=== PATIENT | male | born 1990 | race Caucasian/White ===

== ENCOUNTER 2022-05-24 20:09 | Inpatient (IN) ==
[2022-05-24] MEDS ORDERED: SODIUM CHLORIDE 0.9% 1000ML 1,000 ML IV STA (20:38)
[2022-05-24] MEDS ORDERED: ACETAMINOPHEN 500 MG TAB PO STA (20:47)
--- NOTE | 2022-05-24 20:50 | Emergency Department Note ---
Impression & Plan Altered mental status, COVID-19 ED Provider Note Provider: Fracisco Ballesteros MD DATE OF SERVICE: 05/24/2022 CHIEF COMPLAINT: "coma, illness" HISTORY OF PRESENT ILLNESS: Patient is a 32-year-old gentleman presenting today brought by police from the hotel stating that he feels like his brain is going into a coma and requesting ICU care. Patient reports that he has been ill for the last day or 2 prickly sick today. States that he has not fallen. Denies nausea or abdominal pain. Denies chest pain. Denies neck pain to me. Continuously focuses on stating he feels like he is in a coma he needs the ICU. Evidently he was recently discharged from [facility] for rehab several days ago. He is from [place] by his report. When asked what he was at [facility] for he said for rehab but then states he does not want tells anything out that he has been clean and that we have taken his urine. Patient states he did go to [employer] to get some [id number] cough and cold medicine he took around noon to 1 PM today but it did not help. Denies drug or alcohol use again to me. Patient states he feels warm and cold PAST MEDICAL HISTORY: As noted above MEDICATIONS: Patient states he is not on any medicines SOCIAL HISTORY: Denies drug or alcohol use, from [place] PHYSICAL EXAM: GENERAL: alert laying on the stretcher oriented. Head: normocephalic and atraumatic EYES: No injection, discharge or icterus. NECK: Trachea midline. Supple without significant meningismus ENT: Mucous membranes pink and moist LUNGS: Airway patent. No retractions. Breath sounds clear with good air entry bilaterally. HEART: Regular tachycardic rate and rhythm. No chest wall tenderness ABDOMEN: Soft and non-tender, without guarding or rebound. No significant flank tenderness. SKIN: Acyanotic, warm, dry, without rashes EXTREMITIES: Without swelling, tenderness or deformity NEUROLOGICAL: No focal deficits. No aphasia. No facial droop or slurred speech. Normal strength and tone in the extremities. Sensation to gross touch normal. Ambulatory. EK bpm sinus tachycardia. No PVC or PAC. No acute ST segment elevation or depression with QTc of 4 4 CONTINUOUS CARDIAC MONITORING: was ordered and showed a heart rate of 110s-120s bpm in sinus tachycardia 1 view chest x-ray per my interpretation: No pneumothorax. Question some right hilar Consolidation. No free air under the diaphragm noted. Patient's laboratory studies and imaging reviewed. Differential includes Infection, psychotic disorder, drug-induced confusion, dehydration, metabolic abnormality, hypo/hyperglycemia, electrolyte disturbance, anemia, hypoxia, cardiac sources, intracerebral event, toxicologic, neurologic, as well as other pathologies. IMPRESSION/MEDICAL DECISION MAKING: Patient brought in stating that he feels like he is going into a coma and feeling cold and that he needs the ICU. He denies any significant medical history to me. Evidently was recently out of [facility] rehab [place] but will get the additional information about 1 when on there are what he was detoxing from. States he does not use drugs. Denies any trauma. States he did use some [id number] cough and cold medicine hours ago around noon to 1 PM which did not help. Denies abdominal pain or chest pain. States his brain feels like is going in a coma but does not state he is having a headache. States he is feeling cold. Denies significant sore throat. There is some report from nursing here that he was possibly having some hallucinations prior to arrival which caused the police to go and check on him at the hotel he staying at in [facility]. When asked the patient continues to perseverate that he came here voluntarily for medical issues he does not have mental health issues. Difficult to get a clear history from him as he continually states he feels like he is in a coma and needs the ICU. Interactive and does not appear lethargic. Moving all extremities. No evidence of trauma on physical exam. Patient states he is going and out of consciousness but talking to me. Unclear if this is more medical or psychiatric in nature. Febrile here and tachycardic. Given this given some Tylenol as he states its been sometime since he had any as well as IV fluids and blood cultures and blood work for ordered. Given the reported some hallucinations, will obtain head CT. Do not see clear evidence of trauma on his person. Drug screen was sent to given the recent hospitalization. Does not seem to be having focal neurological deficits. Has a benign abdomen. Did later talk with the patient's mother via phone. She reported the patient was therefore rehab from she believes fentanyl that he was smoking. Stated available talking with him this morning but then this afternoon was not acting r ight having delusions stating people were outside in a car and they were hurting girls. She denies a history of similar. She states he states he thinks he may have taken something. She denies that he has any other significant medical history. As far she knows he has not injected drugs. She states that he possibly said that his heart hurt. Chest x-ray questionable with some right hilar consolidation but no pneumothorax noted. Blood work without significant anemia or leukocytosis. No significant lecture light abnormalities signs of renal dysfunction. No lactate elevation. No signs of transaminitis or troponin elevation. Negative urinalysis. Negative acetaminophen and salicylate levels. Undetectable alcohol level. CT of the head report as below without significant abnormality. Positive for COVID likely explains much of his symptoms. Given this along with his fever and complaints discussed with him further medical observation and care here. Updated patient's mother via phone with limited information given the patient's wishes informing her that he was here and stable. CT of the chest without significant pulmonary findings likely. Patient asking for food and drink. Question if there may be some substance not detected UDS contributing to his presentation versus just some encephalopathy from his COVID. Given the laboratory studies lack of significant meningeal signs lower suspicion for meningitis and do not feel he needs an LP at this point. DIAGNOSIS: Confusion, COVID-19 sepsis DISPOSITION: Hospitalist will evaluate Preliminary Findings Only See Final Report For Complete Findings CT HEAD: No acute intracranial hemorrhage. No midline shift or mass effect. The territorial champagne-white matter differentiation is maintained throughout. The ventricles and sulci are commensurate with age. Radiologist: Jesús Piedra MD Study ready at 21:57 and initial results transmitted at 22:22 Preliminary Findings Only See Final Report For Complete Findings CTA CHEST: Negative for PE No acute airspace disease or effusions Centrilobular emphysema noted Bronchial wall thickening likely reflect COPD Moderately prominent dependent atelectasis noted bilaterally Heart size normal Negative for CHF Radiologist: Yogesh Johnson MD Study ready at 22:47 and initial results transmitted at 23:33 Past Med/Surg History Social History Smoking Status: Never smoker Feels Safe at Home: Yes Results & Data (ED) Vital Signs Vital Signs - 24 hr 05/24/22 20:09 05/24/22 20:55 05/24/22 21:00 Temperature 39.5 C H Temperature Source Oral Pulse Rate 123 H 124 H Pulse Rate from SpO2 Sensor Respiratory Rate 20 Respiratory Effort / Characteristics Non-Labored Respiratory Depth Normal Blood Pressure 113/62 112/62 Blood Pressure Mean 79 78 Pulse Oximetry 99 Sepsis Recent Fever Within 48 Hours Yes Sepsis New/Unexplained Change in Mental Status Yes Sepsis Action Taken by Nursing Physician Notified 05/24/22 21:01 05/24/22 21:30 05/24/22 21:30 Temperature Temperature Source Pulse Rate 127 H 122 H Pulse Rate from SpO2 Sensor 128 H 121 H Respiratory Rate 18 20 Respiratory Effort / Characteristics Respiratory Depth Blood Pressure 117/62 Blood Pressure Mean 80 Pulse Oximetry 95 94 Sepsis Recent Fever Within 48 Hours Sepsis New/Unexplained Change in Mental Status Sepsis Action Taken by Nursing 05/24/22 21:57 05/24/22 21:57 05/24/22 22:00 Temperature Temperature Source Pulse Rate 117 H Pulse Rate from SpO2 Sensor 118 H Respiratory Rate 9 L Respiratory Effort / Characteristics Respiratory Depth Blood Pressure 96/52 L 94/54 L Blood Pressure Mean 66 67 Pulse Oximetry 95 Sepsis Recent Fever Within 48 Hours Sepsis New/Unexplained Change in Mental Status Sepsis Action Taken by Nursing 05/24/22 22:00 Temperature Temperature Source Pulse Rate 117 H Pulse Rate from SpO2 Sensor 116 H Respiratory Rate 15 Respiratory Effort / Characteristics Respiratory Depth Blood Pressure Blood Pressure Mean Pulse Oximetry 94 Sepsis Recent Fever Within 48 Hours Sepsis New/Unexplained Change in Mental Status Sepsis Action Taken by Nursing Laboratory Data 05/24/22 20:30 05/24/22 20:30 Lab Results 05/24/22 05/24/22 05/24/22 Range/Units 20:30 20:30 20:30 WBC 7.51 (4.8-10.8) K/ul RBC 4.97 (4.70-6.10) M/uL Hgb 14.4 (14.0-18.0) g/dl Hct 41.4 L (42.0-52.0) % MCV 83.3 (80.0-100.0) fL MCH 29.0 (25.0-34.0) pg MCHC 34.8 (32.0-36.0) g/dL RDW Std Deviation 44.5 (36.4-46.3) fL RDW Coeff of [place]ail[place] 14.7 H (11.5-14.5) % Plt Count 208 (130-400) K/uL MPV 10.3 (9.4-12.4) fL Immature Gran % (Auto) 0.3 % Neut % (Auto) 77.7 % Lymph % (Auto) 7.6 % [place] % (Auto) 12.5 % Eos % (Auto) 1.2 % Baso % (Auto) 0.7 % Neut # (Auto) 5.84 (1.40-6.50) K/uL Lymph # (Auto) 0.57 L (1.2-3.4) K/uL [place] # (Auto) 0.94 H (0.11-0.59) K/uL Eos # (Auto) 0.09 (0-0.50) K/uL Baso # (Auto) 0.05 (0-0.2) K/uL Immature Gran # (Auto) 0.02 (0.01-0.20) K/uL Sodium 139 (136-145) mmol/L Potassium 3.7 (3.5-5.1) mmol/L Chloride 106 (98-107) mmol/L Carbon Dioxide 25 (21-32) mmol/L Anion Gap 8 (3-11) BUN 14 (6-23) mg/dl Creatinine 0.90 (0.6-1.4) mg/dl Est Cr Clr Drug Dosing 118.4 ml/min Est GFR ( Amer) 128.7 ml/min Est GFR (Non-Af Amer) 111.0 ml/min BUN/Creatinine Ratio 15.6 (10-20) Glucose 101 H (70-99(Fasting)) mg/dl Lactate (0.4-2.0) mmol/L Calcium 9.7 (8.5-10.1) mg/dl Total Bilirubin 0.3 (0.2-1.0) mg/dl AST 25 (13-39) U/L ALT 22 (7-52) U/L Alkaline Phosphatase 72 (34-104) U/L Troponin I High Sens 4.8 (0-20) pg/ml Total Protein 6.8 (6.0-8.3) gm/dl Albumin 4.6 (3.4-5.0) gm/dl Globulin 2.2 L (2.5-4.0) gm/dl Albumin/Globulin Ratio 2.1 H (0.9-2) Urine Color Urine Appearance (Clear) Urine pH (4.5-7.5) Ur Specific [place] (1.000-1.030) Urine Protein (Negative) Urine Glucose (UA) (Negative) Urine Ketones (Negative) Urine Blood (Negative) Urine Nitrite (Negative) Urine Bilirubin (Negative) Urine Urobilinogen (Negative) Ur Leukocyte Esterase (Negative) Salicylates < 3.0 L (3.0-30) mg/dl Urine Opiates Screen (Neg) Ur Methadone, Qual (Neg) Acetaminophen < 3 L (10-30) ug/ml Urine Barbiturates (Neg) Ur Phencyclidine (PCP) (Neg) U Amphetamin/Meth Scrn (Neg) MDMA (Ecstasy) Screen (Neg) U Benzodiazepines Scrn (Neg) Ur Cocaine Metabolite (Neg) U Marijuana (THC) Screen (Neg) Ethyl Alcohol mg/dL (<10.0) mg/dl Adenovirus (PCR) (NotDetected) B. pertussis DNA (PCR) (NotDetected) B.parapertussis DNA PCR (NotDetected) C. pneumoniae DNA (PCR) (NotDetected) Coronavirus OC43 (PCR) (NotDetected) Coronavirus HKU1 (PCR) (NotDetected) Coronavirus 229E (PCR) (NotDetected) SARS-CoV-2 (PCR) (NotDetected) Coronavirus NL63 (PCR) (NotDetected) Human Metapneumovir PCR (NotDetected) Influenza Type A (PCR) (NotDetected) Influenza Type B (PCR) (NotDetected) M. pneumoniae (PCR) (NotDetected) Parainfluenza 1 (PCR) (NotDetected) Parainfluenza 2 (PCR) (NotDetected) Parainfluenza 3 (PCR) (NotDetected) Parainfluenza 4 (PCR) (NotDetected) RSV (PCR) (NotDetected) Entero/Rhino (PCR) (NotDetected) 05/24/22 05/24/22 05/24/22 Range/Units 20:30 20:30 20:30 WBC (4.8-10.8) K/ul RBC (4.70-6.10) M/uL Hgb (14.0-18.0) g/dl Hct (42.0-52.0) % MCV (80.0-100.0) fL MCH (25.0-34.0) pg MCHC (32.0-36.0) g/dL RDW Std Deviation (36.4-46.3) fL RDW Coeff of Sailaja (11.5-14.5) % Plt Count (130-400) K/uL MPV (9.4-12.4) fL Immature Gran % (Auto) % Neut % (Auto) % Lymph % (Auto) % [place] % (Auto) % Eos % (Auto) % Baso % (Auto) % Neut # (Auto) (1.40-6.50) K/uL Lymph # (Auto) (1.2-3.4) K/uL [place] # (Auto) (0.11-0.59) K/uL Eos # (Auto) (0-0.50) K/uL Baso # (Auto) (0-0.2) K/uL Immature Gran # (Auto) (0.01-0.20) K/uL Sodium (136-145) mmol/L Potassium (3.5-5.1) mmol/L Chloride (98-107) mmol/L Carbon Dioxide (21-32) mmol/L Anion Gap (3-11) BUN (6-23) mg/dl Creatinine (0.6-1.4) mg/dl Est Cr Clr Drug Dosing ml/min Est GFR ( Amer) ml/min Est GFR (Non-Af Amer) ml/min BUN/Creatinine Ratio (10-20) Glucose (70-99(Fasting)) mg/dl Lactate (0.4-2.0) mmol/L Calcium (8.5-10.1) mg/dl Total Bilirubin (0.2-1.0) mg/dl AST (13-39) U/L ALT (7-52) U/L Alkaline Phosphatase (34-104) U/L Troponin I High Sens (0-20) pg/ml Total Protein (6.0-8.3) gm/dl Albumin (3.4-5.0) gm/dl Globulin (2.5-4.0) gm/dl Albumin/Globulin Ratio (0.9-2) Urine Color Yellow Urine Appearance Clear (Clear) Urine pH 6.0 (4.5-7.5) Ur Specific [place] 1.006 (1.000-1.030) Urine Protein Negative (Negative) Urine Glucose (UA) Negative (Negative) Urine Ketones Negative (Negative) Urine Blood Negative (Negative) Urine Nitrite Negative (Negative) Urine Bilirubin Negative (Negative) Urine Urobilinogen Negative (Negative) Ur Leukocyte Esterase Negative (Negative) Salicylates (3.0-30) mg/dl Urine Opiates Screen (Neg) Ur Methadone, Qual (Neg) Acetaminophen (10-30) ug/ml Urine Barbiturates (Neg) Ur Phencyclidine (PCP) (Neg) U Amphetamin/Meth Scrn (Neg) MDMA (Ecstasy) Screen (Neg) U Benzodiazepines Scrn (Neg) Ur Cocaine Metabolite (Neg) U Marijuana (THC) Screen (Neg) Ethyl Alcohol mg/dL < 10.0 (<10.0) mg/dl Adenovirus (PCR) Not Detected (NotDetected) B. pertussis DNA (PCR) Not Detected (NotDetected) B.parapertussis DNA PCR Not Detected (NotDetected) C. pneumoniae DNA (PCR) Not Detected (NotDetected) Coronavirus OC43 (PCR) Not Detected (NotDetected) Coronavirus HKU1 (PCR) Not Detected (NotDetected) Coronavirus 229E (PCR) Not Detected (NotDetected) SARS-CoV-2 (PCR) DETECTED A* (NotDetected) Coronavirus NL63 (PCR) Not Detected (NotDetected) Human Metapneumovir PCR Not Detected (NotDetected) Influenza Type A (PCR) Not Detected (NotDetected) Influenza Type B (PCR) Not Detected (NotDetected) M. pneumoniae (PCR) Not Detected (NotDetected) Parainfluenza 1 (PCR) Not Detected (NotDetected) Parainfluenza 2 (PCR) Not Detected (NotDetected) Parainfluenza 3 (PCR) Not Detected (NotDetected) Parainfluenza 4 (PCR) Not Detected (NotDetected) RSV (PCR) Not Detected (NotDetected) Entero/Rhino (PCR) Not Detected (NotDetected) 05/24/22 05/24/22 Range/Units 20:30 21:15 WBC (4.8-10.8) K/ul RBC (4.70-6.10) M/uL Hgb (14.0-18.0) g/dl Hct (42.0-52.0) % MCV (80.0-100.0) fL MCH (25.0-34.0) pg MCHC (32.0-36.0) g/dL RDW Std Deviation (36.4-46.3) fL RDW Coeff of Sailaja (11.5-14.5) % Plt Count (130-400) K/uL MPV (9.4-12.4) fL Immature Gran % (Auto) % Neut % (Auto) % Lymph % (Auto) % [place] % (Auto) % Eos % (Auto) % Baso % (Auto) % Neut # (Auto) (1.40-6.50) K/uL Lymph # (Auto) (1.2-3.4) K/uL [place] # (Auto) (0.11-0.59) K/uL Eos # (Auto) (0-0.50) K/uL Baso # (Auto) (0-0.2) K/uL Immature Gran # (Auto) (0.01-0.20) K/uL Sodium (136-145) mmol/L Potassium (3.5-5.1) mmol/L Chloride (98-107) mmol/L Carbon Dioxide (21-32) mmol/L Anion Gap (3-11) BUN (6-23) mg/dl Creatinine (0.6-1.4) mg/dl Est Cr Clr Drug Dosing ml/min Est GFR ( Amer) ml/min Est GFR (Non-Af Amer) ml/min BUN/Creatinine Ratio (10-20) Glucose (70-99(Fasting)) mg/dl Lactate 0.8 (0.4-2.0) mmol/L Calcium (8.5-10.1) mg/dl Total Bilirubin (0.2-1.0) mg/dl AST (13-39) U/L ALT (7-52) U/L Alkaline Phosphatase (34-104) U/L Troponin I High Sens (0-20) pg/ml Total Protein (6.0-8.3) gm/dl Albumin (3.4-5.0) gm/dl Globulin (2.5-4.0) gm/dl Albumin/Globulin Ratio (0.9-2) Urine Color Urine Appearance (Clear) Urine pH (4.5-7.5) Ur Specific [place] (1.000-1.030) Urine Protein (Negative) Urine Glucose (UA) (Negative) Urine Ketones (Negative) Urine Blood (Negative) Urine Nitrite (Negative) Urine Bilirubin (Negative) Urine Urobilinogen (Negative) Ur Leukocyte Esterase (Negative) Salicylates (3.0-30) mg/dl Urine Opiates Screen Neg (Neg) Ur Methadone, Qual Neg (Neg) Acetaminophen (10-30) ug/ml Urine Barbiturates Neg (Neg) Ur Phencyclidine (PCP) Neg (Neg) U Amphetamin/Meth Scrn Neg (Neg) MDMA (Ecstasy) Screen Neg (Neg) U Benzodiazepines Scrn Neg (Neg) Ur Cocaine Metabolite Neg (Neg) U Marijuana (THC) Screen Neg (Neg) Ethyl Alcohol mg/dL (<10.0) mg/dl Adenovirus (PCR) (NotDetected) B. pertussis DNA (PCR) (NotDetected) B.parapertussis DNA PCR (NotDetected) C. pneumoniae DNA (PCR) (NotDetected) Coronavirus OC43 (PCR) (NotDetected) Coronavirus HKU1 (PCR) (NotDetected) Coronavirus 229E (PCR) (NotDetected) SARS-CoV-2 (PCR) (NotDetected) Coronavirus NL63 (PCR) (NotDetected) Human Metapneumovir PCR (NotDetected) Influenza Type A (PCR) (NotDetected) Influenza Type B (PCR) (NotDetected) M. pneumoniae (PCR) (NotDetected) Parainfluenza 1 (PCR) (NotDetected) Parainfluenza 2 (PCR) (NotDetected) Parainfluenza 3 (PCR) (NotDetected) Parainfluenza 4 (PCR) (NotDetected) RSV (PCR) (NotDetected) Entero/Rhino (PCR) (NotDetected) Administered Medications Discontinued Medications Acetaminophen (Acetaminophen 500 Mg Tab) 1,000 mg PO NOW STA Stop: 05/24/22 20:48 Last Admin: 05/24/22 21:24 Dose: 1,000 mg Documented By: LIGIA Sodium Chloride (Nss 1000ml) 1,000 mls @ 999 mls/hr IV .Q1H1M STA Stop: 05/24/22 21:38 Last Infusion: 05/24/22 22:28 Dose: 0 mls/hr Documented By: Admin: 05/24/22 21:24 Dose: 999 mls/hr Documented By: LIGIA Sodium Chloride (Nss 1000ml) 1,000 mls @ 999 mls/hr IV .Q1H1M ONE Stop: 05/24/22 23:36 Last Admin: 05/24/22 22:49 Dose: 999 mls/hr Documented By: LIGIA Lactated Ringer's (Lr) 500 mls @ 999 mls/hr IV .Q31M ONE Stop: 05/24/22 23:07 Last Admin: 05/24/22 22:49 Dose: 999 mls/hr Documented By: LIGIA Ioversol (Optiray 320 500ml) 111 ml IV ONCE ONE Stop: 05/24/22 22:31 Last Admin: 05/24/22 22:31 Dose: 111 ml Documented By: EDK Discharge Plan Visit Data Chief Complaint: Mental Health Evaluation Stated Complaint: MENTAL HEALTH EVAL ED Provider: Fracisco Ballesteros Discharge Problem: Altered mental status, COVID-19 Patient Disposition: Being Evaluated by Hospitalist Forms Stand Alone Forms: [facility], Suicide Prevention Resources Referrals Referrals: PCP,NO [Primary Care Provider] -
[2022-05-24 21:42] LABS: Basophils # (auto) 0.05 K/uL (0-0.2); Basophils % (auto) 0.7 %; Eosinophils # (auto) 0.09 K/uL (0-0.50); Eosinophils % (auto) 1.2 %; Hematocrit (blood only) 41.4 % (42.0-52.0); Hemoglobin 14.4 g/dl (14.0-18.0); Immature Granulocytes # (auto) 0.02 K/uL (0.01-0.20); Immature Granulocytes % (auto) 0.3 %; Lymphocytes # (auto) 0.57 K/uL (1.2-3.4); Lymphocytes % (auto) 7.6 %; Mean Corpuscular Hgb Conc 34.8 g/dL (32.0-36.0); Mean Corpuscular Volume 83.3 fL (80.0-100.0); Mean Platelet Volume 10.3 fL (9.4-12.4); Monocytes # (auto) 0.94 K/uL (0.11-0.59); Monocytes % (auto) 12.5 %; Neutrophils # (auto) 5.84 K/uL (1.40-6.50); Neutrophils % (auto) 77.7 %; Platelet Count 208 K/uL (130-400); RDW Coefficient of Variation 14.7 % (11.5-14.5); RDW Standard Deviation 44.5 fL (36.4-46.3); Red Blood Count 4.97 M/uL (4.70-6.10); White Blood Count 7.51 K/ul (4.8-10.8)
[2022-05-24 21:48] LABS: Albumin Globulin Ratio 2.1 (0.9-2); Albumin Level 4.6 gm/dl (3.4-5.0); Appearance Urine Clear (Clear); BUN Creatinine Ratio 15.6 (10-20); Bilirubin Urine Negative (Negative); Bilirubin,Total 0.3 mg/dl (0.2-1.0); Blood Urine Negative (Negative); Calcium 9.7 mg/dl (8.5-10.1); Color Urine Yellow; Creatinine Clr Calc Pharmacy 118.4 ml/min; Est GFR (African American) 128.7 ml/min; Globulin 2.2 gm/dl (2.5-4.0); Glucose Urine UA Negative (Negative); Ketones Urine Negative (Negative); Leukocyte Esterase Urine Negative (Negative); Nitrite Urine Negative (Negative); Potassium 3.7 mmol/L (3.5-5.1); Protein Urine Negative (Negative); Specific Gravity Urine 1.006 (1.000-1.030); Total Protein 6.8 gm/dl (6.0-8.3); Urobilinogen Urine Negative (Negative)
[2022-05-24 21:49] LABS: Acetaminophen < 3 ug/ml (10-30); Salicylate < 3.0 mg/dl (3.0-30)
[2022-05-24 21:53] LABS: Troponin I High Sensitivity 4.8 pg/ml (0-20)
[2022-05-24 22:17] LABS: Amphetamines+Metham, Urine Neg (Neg); Barbiturates, Urine Neg (Neg); Benzodiazepine, Urine Neg (Neg); Cocaine, Urine Neg (Neg); MDMA (Ecstacy), Urine Neg (Neg); Methadone, Urine Neg (Neg); Opiate, Urine Neg (Neg); Phencyclidine, Urine Neg (Neg)
[2022-05-24 22:22] LABS: Adenovirus PCR Not Detected (NotDetected); Bordetella parapertussis PCR Not Detected (NotDetected); Bordetella pertussis PCR Not Detected (NotDetected); Chlamydia pneumoniae PCR Not Detected (NotDetected); Coronavirus 229E PCR Not Detected (NotDetected); Coronavirus HKU1 PCR Not Detected (NotDetected); Coronavirus NL63 PCR Not Detected (NotDetected); Coronavirus OC43PCR Not Detected (NotDetected); Human Metapneumovirus PCR Not Detected (NotDetected); Influenza A PCR Not Detected (NotDetected); Influenza B PCR Not Detected (NotDetected); Mycoplasma pneumoniae PCR Not Detected (NotDetected); Parainfluenza Virus 1 PCR Not Detected (NotDetected); Parainfluenza Virus 2 PCR Not Detected (NotDetected); Parainfluenza Virus 3 PCR Not Detected (NotDetected); Parainfluenza Virus 4 PCR Not Detected (NotDetected); Respiratory Syncytial VirusPCR Not Detected (NotDetected); Rhinovirus/Enterovirus PCR Not Detected (NotDetected)
[2022-05-24 22:28] LABS: Coronavirus CoV-2 (COVID19)PCR DETECTED (NotDetected)
[2022-05-24] MEDS ORDERED: OPTIRAY 320 500ml IV ONE (22:30)
[2022-05-24] MEDS ORDERED: SODIUM CHLORIDE 0.9% 1000ML 1,000 ML IV ONE (22:36)
[2022-05-24] MEDS ORDERED: LACTATED RINGER'S 500 ML IV ONE (22:37)
[2022-05-25] MEDS ORDERED: IBUPROFEN 600 MG TAB PO STA (00:27)
[2022-05-25] MEDS ORDERED: ACETAMINOPHEN 1,000 MG/100 ML VIAL IV STA (01:27)
[2022-05-25] MEDS ORDERED: KETOROLAC TROMETHAMINE 15 MG/ML VIAL IV ONE (01:27)
[2022-05-25] MEDS ORDERED: VANCOMYCIN CONSULT ACTIVE PRN (01:53)
[2022-05-25] MEDS ORDERED: PIPERACILLIN/TAZOBACTAM 4.5 GM in DEXTROSE 5% 100 ML IV ONE (01:53)
[2022-05-25] MEDS ORDERED: VANCOMYCIN HCL 2,000 MG in SODIUM CHLORIDE 0.9% 500 ML IV STA (01:56)
[2022-05-25] MEDS ORDERED: SODIUM CHLORIDE 0.9% 1000ML 1,000 ML IV SCH (02:00)
[2022-05-25] MEDS ORDERED: NITROGLYCERIN SL 0.4 MG/TAB TAB SL PRN (04:21)
[2022-05-25] MEDS: SODIUM CHLORIDE 0.9% 1000ML 1,000 ML IV SCH ×3 (04:37→17:55)
[2022-05-25] MEDS ORDERED: Patient's ALLERGY Info needs ENTERED SCH (04:45)
--- NOTE | 2022-05-25 05:52 | History and Physical Report ---
DATE OF ADMISSION: 05/25/2022 CHIEF COMPLAINT: Altered mental status, high fevers, COVID positive. HISTORY OF PRESENT ILLNESS: A 32-year-old male who was recently in the [facility]. As per mother, he was in the rehab for, she was not sure, but thinks was for fentanyl use. He was there for three weeks, he was supposed to be there for one more week, but he left last Wednesday. Patient is [place] but his parents kept him in a hotel room since Wednesday because they want to send him to a different rehab in [place]. The patient was not agreeing , and to night, the patient was brought by the police from the hotel as he was confused. As peer other he was delusion with seeing people outside his hotel.Per Er when he came in he was constanly saying he was in coma and requesting ICU care. It looks like he was sick for last 2 days as per the ER note. Per ER denied any drug abuse .Per the ER and he told that he went [employer] to get some thlf-[id number] cold medicine around 1 p.m. Denies any drug or alcohol per the ER, but as per mother, he smokes cigarettes 1-2 packs daily and was doing fentanyl but she was not sure about that. That is why he was in rehab. Today here, drug screen negative. Mother was worried that in the last 2 days he was doing some drugs because he was getting confused, and delusional today but seemed reassured as his drug scree came negative.When he came in, he was tachycardic and was having high temperature spikes. CT of the head and CT of the chest unremarkable, no elevated white count. Urine drug screen was unremarkable. Respiratory BioFire positive for COVID. He is very drowsy, he could tell his name, speaking in low voices. He states he is not feeling good. He states yes for all the complaints. Could not get much history from the patient at this time. As per mother he has no other medical problems, no surgeries. He does not take any medications. ALLERGIES: Unable to assess at this time. PAST MEDICAL HISTORY: None as per mother. PAST SURGICAL HISTORY: None as per mother. MEDICATIONS: None as per mother. FAMILY HISTORY: Both parents have no medical problem. As per the mother, the family history is significant for hypertension, diabetes and his maternal grandmother of ALS and there is Parkinson's disease in the family. SOCIAL HISTORY: Smokes 1-2 packs of cigarette daily. Possible fentanyl use. No alcohol use as per mother. REVIEW OF SYSTEMS: Unobtainable at this time. PHYSICAL EXAMINATION: GENERAL: The patient is very drowsy, on calling could tell only his name. Speaking in very low voice. VITAL SIGNS: T-max was 39.5, pulse 104, respiratory rate 20, blood pressure 120/54, oxygen 97%. HEENT: Pupils, not examined, the patient is not opening his eyes. Head is atraumatic. No obvious facial droop seen. Speaking in low voices. NECK: No neck masses seen. CARDIOVASCULAR: S1 and S2 heard. Tachycardia. No murmurs. RESPIRATORY: Normal AP diameter. No accessory muscle use. No wheezing, no crackles. ABDOMEN: Soft, bowel sounds present, nontender, no distention. CENTRAL NERVOUS SYSTEM: Very drowsy, only could tell his name, speaking in low voices trying to obey simple commands. EXTREMITIES: No edema, no erythema. LABORATORY DATA: WBC 7.5, hemoglobin 14.4, hematocrit 41.4, platelets 208. Sodium 139, potassium 3.7, chloride 106, bicarb 25, BUN 14, creatinine 0.9, serum glucose 101, lactate 0.8, calcium 9.7, total bilirubin 0.3, AST 25, ALT 22, alkaline phosphatase 72. Troponin I high sensitivity 4.8. Urine drug screen negative. Urinalysis negative. Ethyl alcohol less than 10. Respiratory BioFire positive for SARS-CoV-2. IMAGING DATA: CT chest preliminary report unremarkable. CT head preliminary report unremarkable. Chest x-ray, no acute findings. EKG: Sinus tachycardia at a rate of 117. No previous EKG available. ASSESSMENT AND PLAN: This is a 32-year-old male presents with confusion, delusions, and high fever and COVID positive. 1. Confusion, delusions, as per mother he was seeing people outside of hotel room and he was confused in the hotel and in ER was saying that he is in coma and needs ICU care. When he came in was spiking temp a d was tachycardic , he was found to be COVID positive. He was recently in rehab for substance use, probably fentanyl use. As per the mother, he was there for three weeks and he was supposed to be there for one more week, but he was left last Wednesday, there was question if he was doing drugs for the last 2 days, but drug screen came back negative. His confusion, delusions could be from COVID. CT of the head and chest unremarkable. 2. Sepsis from COVID. He is saturating okay. CT chest okay. As per mother he received COVID vaccine in 2020. She is not sure if he has got COVID booster or not. We will monitor him in tele floor. Currently doesnot meet criteria for remdesivir or steroids at this time. We will keep him hydrated with fluids. Supportive care with Tylenol p.r.n. We will give him Toradol for temperature control if needed and closely monitor him in the tele floor. Further testing will be based on clinical course. 3. Deep venous thrombosis prophylaxis: Place on sequential compression devices for now. Addendum: As his BP was dropping gave fluid bolus and ns@150ml/hr and empiric iv zosyn and iv vanco. Close monitor. DISPOSITION: Closely monitor in the tele floor. Level 1 FULL CODE. Social service to help with discharge planning. Job ID: [id number] [id number]
[2022-05-25 07:11] LABS: Basophils # (auto) 0.03 K/uL (0-0.2); Basophils % (auto) 0.6 %; Eosinophils # (auto) 0.04 K/uL (0-0.50); Eosinophils % (auto) 0.7 %; Hematocrit (blood only) 36.7 % (42.0-52.0); Hemoglobin 12.3 g/dl (14.0-18.0); Immature Granulocytes # (auto) 0.01 K/uL (0.01-0.20); Immature Granulocytes % (auto) 0.2 %; Lymphocytes # (auto) 1.52 K/uL (1.2-3.4); Lymphocytes % (auto) 28.1 %; Mean Corpuscular Hemoglobin 28.5 pg (25.0-34.0); Mean Corpuscular Hgb Conc 33.5 g/dL (32.0-36.0); Mean Platelet Volume 10.5 fL (9.4-12.4); Monocytes # (auto) 1.12 K/uL (0.11-0.59); Monocytes % (auto) 20.7 %; Neutrophils # (auto) 2.68 K/uL (1.40-6.50); Neutrophils % (auto) 49.7 %; Platelet Count 202 K/uL (130-400); RDW Coefficient of Variation 14.9 % (11.5-14.5); RDW Standard Deviation 46.3 fL (36.4-46.3); Red Blood Count 4.32 M/uL (4.70-6.10)
[2022-05-25 07:18] LABS: BUN Creatinine Ratio 14.4 (10-20); Calcium 7.9 mg/dl (8.5-10.1); Creatinine Clr Calc Pharmacy 118.4 ml/min; Est GFR (African American) 128.7 ml/min; Magnesium 1.8 mg/dl (1.7-2.4); Potassium 3.6 mmol/L (3.5-5.1)
[2022-05-25] MEDS: PIPERACILLIN/TAZOBACTAM 3.375 GM in DEXTROSE 5% 100 ML IV SCH ×2 (07:22→16:20)
--- NOTE | 2022-05-25 07:57 | CT Scan Report ---
CT ANGIOGRAPHY OF THE CHEST, PULMONARY EMBOLUS PROTOCOL CLINICAL HISTORY: Tachycardia. Possible consolidation. Evaluate for pulmonary embolus. COMPARISON STUDY: Chest radiograph May 24, 2022. TECHNIQUE: Following IV administration of 111 mL of Optiray, helical axial images of the chest were o btained utilizing the pulmonary embolus protocol. Maximal intensity projections and sagittal and cor onal reformats were viewed on an independent 3D workstation. IV contrast was administered without co mplication. Automated exposure control was utilized for the study. A dose lowering technique was ut ilized adhering to the principles of ALARA. CT DOSE: 776.96 mGy.cm FINDINGS: No pulmonary emboli are identified although the segmental and subsegmental pulmonary arter ies are suboptimally assessed on this exam. There is no thoracic aortic dissection. The size of the h eart is normal. No pericardial effusion. There is no thoracic lymphadenopathy. No pneumothorax or ple ural effusion is present. Subpleural groundglass opacities within the lower lobes favor atelectasis. There is no consolidation to suggest pneumonia. Moderate upper lobe predominant emphysema is present. No acute fractures within the visualized bony thorax are noted. Visualized portions of the upper abd omen are unremarkable. IMPRESSION: 1. No pulmonary emboli identified although segmental and subsegmental pulmonary arteries suboptimally assessed. 2. Emphysema. 3. Dependent ground glass opacities suggestive of atelectasis. No consolidation to suggest pneumonia. ACT 112: Negative or not required by law. Electronically signed by: Herb Perez M.D. 05/25/2022 7:56 AM
[2022-05-25] MEDS ORDERED: VANCOMYCIN HCL 1,250 MG in SODIUM CHLORIDE 0.9% 250 ML IV SCH (08:00)
--- NOTE | 2022-05-25 08:15 | XRay Report ---
XR chest 1V portable CLINICAL HISTORY: Fever. COMPARISON STUDY: No previous studies for comparison. FINDINGS: Lung volumes are diminished. There is apparent pulmonary vascular congestion. No pneumothor ax or pleural effusion is present. No consolidation is identified. Cardiomediastinal silhouette is no rmal. IMPRESSION: 1. Low lung volumes. Pulmonary vascular congestion. 2. No consolidation. ACT 112: Negative or not required by law. Electronically signed by: Herb Perez M.D. 05/25/2022 8:14 AM
--- NOTE | 2022-05-25 08:36 | CT Scan Report ---
CT OF THE HEAD WITHOUT CONTRAST CLINICAL HISTORY: confusion/hallucinations COMPARISON STUDY: No previous studies for comparison. CT DOSE: 614.27 mGy.cm TECHNIQUE: Helical axial images of the head were obtained without IV contrast. Automated exposure con trol was utilized for the study. A dose lowering technique was utilized adhering to the principles o f ALARA. FINDINGS: No acute intracranial hemorrhage, midline shift or mass effect is present. The ventricular system is unremarkable. The basal cisterns are patent. No extra-axial collections are present. There are no findings to suggest acute dural sinus thrombosis or acute territorial infarct. No significant calvarial abnormalities are present. Visualized portions of the sinuses and mastoid air cells are tommy ar. IMPRESSION: No acute intracranial findings. ACT 112: Negative or not required by law. Electronically signed by: Herb Perez M.D. 05/25/2022 8:35 AM
[2022-05-25] MEDS: ENOXAPARIN INJ 40 MG/0.4 ML SYR SQ SCH (09:20)
--- NOTE | 2022-05-25 11:19 | Electrocardiogram Report ---
Test Reason : Blood Pressure : / mmHG Vent. Rate : 117 BPM Atrial Rate : 117 BPM P-R Int : 152 ms QRS Dur : 086 ms QT Int : 290 ms P-R-T Axes : 047 072 032 degrees QTc Int : 404 ms Poor data quality, interpretation may be adversely affected Sinus tachycardia Otherwise normal ECG No previous ECGs available Confirmed by Basilio Ambriz ([id number]) on 05/25/2022 11:19:15 AM Referred By: REFERRED SELF Confirmed By:Haris Ambriz
--- NOTE | 2022-05-25 13:28 | Pharmacy Report ---
Pharmacy PK ABX Note - Date of Service May 25, 2022 - Assessment and Plan Assessment 32 year old M receiving vancomycin and zosyn empirically in setting of sepsis/COVID-19. Blood cultures pending. MRSA nasal (-). Day #1 of antimicrobial therapy. Plan Vancomycin * Loading dose: 2000 mg IV x 1 * Maintenance dose: 1250 mg IV every 12 hours * Regimen is predicted to achieve target AUC/LULU of 400-600 mg/L.hr * Will obtain a level around steady state if vancomycin continued. Pharmacy will continue to follow and will adjust dose/frequency as necessary. Thank you. Pharmacy has transitioned to AUC monitoring for vancomycin. AUC/LULU is the preferred PK/PD target and is associated with decreased risk of nephrotoxicity compared to traditional trough targets.
--- NOTE | 2022-05-25 15:02 | Communication Note ---
Date of Service: May 25, 2022 Patient admitted this morning. Patient is AOx3. He was able to tell me that he was feeling sick for the past few days after leaving rehab center. He reported he had headache, myalgias He stated he asked to be brought to the hospital. 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 He stated he was smoking it. Denied any other illicit drug use. When asked about fentanyl, he stated it may have been mixed with the heroin. When asked about reason for leaving rehab, he reported there may be some people there were planning to harm him but will not go into details and some people were getting abused. When I asked for more information, he declined and did not want any further evaluation He stated 'I was not feeling fine because I have COVID pneumonia. I am feeling better now" and asked me to stop asking any further question. He declined examination. Based on my conversation with him, patient has capacity at this time. Fever +COVID 19 infection CTA chest did not show PE. Noted emphysema and dependent ground glass opacities suggestive of atelectasis No leukocytosis UDS negative Was febrile and tachycardic on presentation Currently on zosyn Will get procalcitonin. If not elevated, will stop antibiotics and monitor as fever likely due to COVID Blood cultures negative Other plans as detailed in H&P
[2022-05-25] MEDS: ACETAMINOPHEN 1,000 MG/100 ML VIAL IV PRN (20:26)
[2022-05-26] MEDS: SODIUM CHLORIDE 0.9% 1000ML 1,000 ML IV SCH ×2 (00:36→05:22)
[2022-05-26] MEDS: ACETAMINOPHEN 1,000 MG/100 ML VIAL IV PRN (05:21)
[2022-05-26] MEDS: ENOXAPARIN INJ 40 MG/0.4 ML SYR SQ SCH (09:05)
[2022-05-26] MEDS ORDERED: PANTOprazole 40 MG TAB PO SCH (11:00)
--- NOTE | 2022-05-26 16:25 | Hospitalist Progress Note ---
Date of Service May 26, 2022 Assessment & Plan (1) COVID-19: Plan: Has had fever without any shortness of breath and her cough Noted to have COVID-19 virus infection Saturating normally on room air Does not require any treatment for COVID-19 virus infection Epigastric/right upper quadrant pain Likely GERD/peptic ulcer disease Protonix has been started We will get ultrasound to rule out gallstones LFTs have been unremarkable (2) Altered mental status: Plan: Reviewing the H&P and the ER note the patient has had acute confusion The patient denies any more confusion during my examination No hallucination and no paranoia (3) Drug abuse: Plan: He was in [facility] drug rehab program likely fentanyl Came out 7 days early as per the note and was in a hotel He was admitted from hotel with high fever and acute confusion He has not had been using any alcohol or any other drugs Urine drug screen has been negative No more confusion and or hallucination Plan DVT prophylaxis SCDs CODE STATUS Full Admission and Anticipated Discharge Date Admission Date: May 25, 2022 Subjective 05/26/2022 The patient was seen and examined in telemetry unit and in the COVID room He has been feeling much better and does not have any respiratory symptoms He complains to have epigastric/right abdominal pain without any nausea and or vomiting Denies any confusion No tremors on the outstretched hands Review of Systems Review of Systems: All systems reviewed and are unremarkable except as noted below Physical Exam Physical Exam: Lying in bed with minimal epigastric discomfort Constitutional: well developed, well nourished and + ill appearing Eyes: PERRL, conjunctivae normal, anicteric sclerae ENMT: external ear and nose normal, oropharynx normal Neck: trachea midline, no thyromegaly Respiratory: no respiratory distress Auscultation: lungs clear to auscultation bilaterally Cardiovascular: Rate/Rhythm: regular rate and regular rhythm; not bradycardic Heart Sounds: normal S1 and normal S2; no murmur Extremities: no edema Gastrointestinal (Abdomen): Inspection/Auscultation: normal bowel sounds; abdomen not distended Percussion/Palpation: abdomen soft; abdomen nontender Musculoskeletal: No acute arthritis involving any joint Neurologic: normal touch/pain/proprioception and moves all extremities; no focal motor deficits No tremors involving the outstretched hands Psychiatric: A+Ox3, euthymic affect Lymphatic: no cervical or axillary lymphadenopathy Results & Data Results & Data ([facility]) Vital Signs (Past 12 Hours) Vital Signs Temp Pulse Pulse Resp BP Pulse Ox O2 Del Method 05/26/22 07:00 70 05/26/22 08:07 36.8 C 58 L 18 105/63 98 Room Air 05/26/22 05:49 53 L 05/26/22 05:07 36.8 C 84 20 134/90 92 Room Air Medications Administered Current Inpatient Medications Enoxaparin Sodium (Enoxaparin Inj 40 Mg/0.4 Ml Syr) 40 mg SQ Q24H [facility] Stop: 06/24/22 08:59 Last Admin: 05/26/22 09:05 Dose: 40 mg Acetaminophen (Ofirmev) 1,000 mg in 100 mls @ 400 mls/hr IV Q8H PRN PRN Reason: Pain or Fever Stop: 05/28/22 04:20 Last Infusion: 05/26/22 05:38 Dose: Infused Nitroglycerin (Nitroglycerin Sl 0.4 Mg/Tab Tab) 0.4 mg SL UD PRN PRN Reason: Chest Pain Stop: 06/24/22 04:20 Pantoprazole Sodium (Pantoprazole 40 Mg Tab) 40 mg PO QAM [facility] Stop: 06/25/22 10:59 Last Admin: 05/26/22 12:22 Dose: 40 mg (2) Altered mental status Altered mental status type: unspecified Qualified Code(s): R41.82 - Altered mental status, unspecified
--- NOTE | 2022-05-27 15:45 | Discharge Summary ---
Date of Service May 27, 2022 Admission HPI Per Admitting Provider DICTATED BY: Maco Navas MD DATE OF ADMISSION: 05/25/2022 CHIEF COMPLAINT: Altered mental status, high fevers, COVID positive. HISTORY OF PRESENT ILLNESS: A 32-year-old male who was recently in the [facility]. As per mother, he was in the rehab for, she was not sure, but thinks was for fentanyl use. He was there for three weeks, he was supposed to be there for one more week, but he left last Wednesday. Patient is [place] but his parents kept him in a hotel room since Wednesday because they want to send him to a different rehab in [place]. The patient was not agreeing , and to night, the patient was brought by the police from the hotel as he was confused. As peer other he was delusion with seeing people outside his hotel.Per Er when he came in he was constanly saying he was in coma and requesting ICU care. It looks like he was sick for last 2 days as per the ER note. Per ER denied any drug abuse .Per the ER and he told that he went [employer] to get some [id number] cold medicine around 1 p.m. Denies any drug or alcohol per the ER, but as per mother, he smokes cigarettes 1-2 packs daily and was doing fentanyl but she was not sure about that. That is why he was in rehab. Today here, drug screen negative. Mother was worried that in the last 2 days he was doing some drugs because he was getting confused, and delusional today but seemed reassured as his drug scree came negative.When he came in, he was tachycardic and was having high temperature spikes. CT of the head and CT of the chest unremarkable, no elevated white count. Urine drug screen was unremarkable. Respiratory Bio[employer] positive for COVID. He is very drowsy, he could tell his name, speaking in low voices. He states he is not feeling good. He states yes for all the complaints. Could not get much history from the patient at this time. As per mother he has no other medical problems, no surgeries. He does not take any medications. Admission Exam Per Admitting Provider GENERAL: The patient is very drowsy, on calling could tell only his name. Speaking in very low voice. VITAL SIGNS: T-max was 39.5, pulse 104, respiratory rate 20, blood pressure 120/54, oxygen 97%. HEENT: Pupils, not examined, the patient is not opening his eyes. Head is atraumatic. No obvious facial droop seen. Speaking in low voices. NECK: No neck masses seen. CARDIOVASCULAR: S1 and S2 heard. Tachycardia. No murmurs. RESPIRATORY: Normal AP diameter. No accessory muscle use. No wheezing, no crackles. ABDOMEN: Soft, bowel sounds present, nontender, no distention. CENTRAL NERVOUS SYSTEM: Very drowsy, only could tell his name, speaking in low voices trying to obey simple commands. EXTREMITIES: No edema, no erythema. Principal Diagnosis Feverresolved, COVID-19 virus infection, questionable confusion- resolved Discharge Exam Lying in bed with minimal epigastric discomfort Constitutional well developed, well nourished and + ill appearing Eyes PERRL, conjunctivae normal, anicteric sclerae ENMT external ear and nose normal, oropharynx normal Neck trachea midline, no thyromegaly Respiratory no respiratory distress Auscultation: lungs clear to auscultation bilaterally Cardiovascular Rate/Rhythm: regular rate and regular rhythm; not bradycardic Heart Sounds: normal S1 and normal S2; no murmur Extremities: no edema Gastrointestinal (Abdomen) Inspection/Auscultation: normal bowel sounds; abdomen not distended Percussion/Palpation: abdomen soft; abdomen nontender Neurologic normal touch/pain/proprioception and moves all extremities; no focal motor deficits Psychiatric A+Ox3, euthymic affect Lymphatic no cervical or axillary lymphadenopathy Discharge Data Allergies Allergy/AdvReac Type Severity Reaction Status Date / Time No Known Allergies Allergy Verified 05/26/22 21:35 Consultations 05/24/22 23:34 ED Decision to Admit Stat Ordered Studies 05/24/22 20:40 CT head/brain wo con Stat 05/24/22 22:08 CT angio chest PE protocol Stat Hospital Course (1) COVID-19: Has had fever without any shortness of breath and her cough Noted to have COVID-19 virus infection Saturating normally on room air Does not require any treatment for COVID-19 virus infection Epigastric/right upper quadrant pain Likely GERD/peptic ulcer disease Protonix has been started We will get ultrasound to rule out gallstones LFTs have been unremarkable (2) Altered mental status: Reviewing the H&P and the ER note the patient has had acute confusion The patient denies any more confusion during my examination No hallucination and no paranoia Recurrent attempt to convince to stay in the hospital for observation He remains alert awake and oriented without any signs or symptoms of confusion He clearly understood the consequences of leaving the hospital including from complications of undiagnosed condition He signed out AMA in a stable medical condition (3) Drug abuse: He was in [facility] drug rehab program likely fentanyl Came out 7 days early as per the note and was in a hotel He was admitted from hotel with high fever and acute confusion He has not had been using any alcohol or any other drugs Urine drug screen has been negative No more confusion and or hallucination Plan DVT prophylaxis SCDs CODE STATUS Full Total Time Total Time Spent Total Time Spent (In Minutes): 10 minutes Discharge Plan Discharge Items Patient Disposition: Against Medical Advice Reason For Visit: CONFUSION Activity: Resume your previous activity Non-emergency contact: Primary Care Provider Follow-up/Referrals: Caryln Neal MD [Primary Care Provider] - Pending Studies at Discharge: No Stand-Alone Forms: My [facility], Smoking Cessation Medications and DC Order Prescriptions: No Action No Known Home Medications Discharge Orders: Left Against Medical Advice (Routine); Ordered 05/26/22 Ordered By: Johnna Tovar Admission Data Admit Date/Time: 05/25/22 01:26 Attending Provider: Johnna Tovar Admit Provider: Maco Navas Primary Care Provider: Carlyn Neal Other Providers: aMco Navas ; Gilma Moncada I.
--- NOTE | 2022-05-29 11:43 | Coding Query ---
To promote full compliance with coding requirements relating to patient care, provider participation is requested in all cases of business performance advisor uncertainty. Please assist us with the question(s) below: Coding Question(s): No sepsis. The diagnosis(es) below was documented in the H&P then subsequently fell off all further documentation. Please indicate if it is still a possible diagnosis or ruled out. Physician's Response(s): SEPSIS ( ) Diagnosed and POA ( ) Diagnosed and not POA ( + ) Ruled out ( ) Other (please specify) MTDD
== END 2022-05-26 18:42 | disposition left against medical advice (07) | DRG 179 ==
LOC: ED 20:09 → EDINP 05-25 01:26 → SUATTDRO 05-25 01:26 → 1E 05-25 04:21 → 2E 05-26 03:58